=== PATIENT | female | born 1965 | race Caucasian/White ===

== ENCOUNTER 2020-10-20 10:56 | Inpatient (IN) | payer OTHER ==
[~2020-10-20] VITALS: Ht 170.2 cm; Wt 77.1 kg
[~2020-10-20 10:56] MED LIST: ADMELOG100 UNIT/1 SC; HYDROCHLOROTHIA25 MG PO; LANTUS100 UNIT/1 SQ; LEVAQUIN750 MG PO; LIPITOR10 MG PO; NEURONTIN400 MG PO; SUBOXONE 8 MG-1 EACH SL
[2020-10-20 12:47] LABS: HEMOGLOBIN 11.5 gm/dl (12.3-15.3); RED BLOOD COUNT 3.5 M/UL (4.00-5.10); WHITE BLOOD COUNT 10.9 K/UL (4.5-11.0)
[2020-10-20] MEDS ORDERED: CHANTIX0.5 MG PO (17:12)
[2020-10-20] MEDS ORDERED: GABAPENTIN300 MG PO (17:13)
[2020-10-20] MEDS ORDERED: ADULT LOW DOSE81 MG PO (17:13)
[2020-10-20] MEDS ORDERED: DOK100 MG PO (17:14)
[2020-10-20] MEDS ORDERED: PEPCID20 MG PO (17:14)
[2020-10-20] MEDS ORDERED: BUSPAR 10MG10 MG PO (17:14)
[2020-10-20] MEDS ORDERED: LOPRESSOR 25 MG25 MG PO (17:15)
[2020-10-20] MEDS ORDERED: IPRAT-ALBUT 0.5-3 ML INH (17:15)
[2020-10-20] MEDS ORDERED: QUETIAPINE FUMA50 MG PO (17:16)
[2020-10-20] MEDS ORDERED: RENAGEL800 MG PO (17:17)
[2020-10-20] MEDS ORDERED: ZANAFLEX4 MG PO (17:17)
[2020-10-20] MEDS ORDERED: FLOMAX 0.4 MG0.4 MG PO (17:18)
[2020-10-20] MEDS ORDERED: DOXYCYCLINE HY100 M2 PO (18:16)
[2020-10-21 02:33] LABS: HEMOGLOBIN 9.5 gm/dl (12.3-15.3); RED BLOOD COUNT 2.93 M/UL (4.00-5.10); WHITE BLOOD COUNT 5.5 K/UL (4.5-11.0)
[2020-10-22 02:41] LABS: ACINETOBACTER BAUMANNII Not Detected (Negative); CANDIDA ALBICANS Not Detected (Negative); CANDIDA KRUSEI Not Detected (Negative); CANDIDA TROPICALIS Not Detected (Negative); ESCHERICHIA COLI Not Detected (Negative); HAEMOPHILUS INFLUENZAE Not Detected (Negative); KLEBSIELLA OXYTOCA Not Detected (Negative); KLEBSIELLA PNEUMONIAE Not Detected (Negative); KPC-CARBAPENEM-RESISTANCE GENE Not Detected (Negative); PROTEUS Not Detected (Negative); PSEUDOMONAS AERUGINOSA Not Detected (Negative); SERRATIA MARCESANS Not Detected (Negative); STAPHYLOCOCCUS Not Detected (Negative); STAPHYLOCOCCUS AUREUS Not Detected (Negative); STREP AGALACTIAE (GROUP B) Not Detected (Negative); STREP PYOGENES (GROUP A) Not Detected (Negative); STREPTOCOCCUS Not Detected (Negative); mecA (METHICILLIN RESIST GENE Not Detected (Negative); vanA/B (VANCOMYCIN RESIST GENE Not Detected (Negative)
[2020-10-22 04:00] LABS: ENTEROCOCCUS DETECTED (Negative)
--- NOTE | 2020-10-22 05:02 | NUR ---
DR RICHMOND NOTIFIED OF POSITIVE BLOOD CULTURES OF GRAM POSITIVE COCCI IN PAIRS WITH ORGANISM OF ENTEROCOCCOLISIS,ELIZABETH ORDERED FOR PHARMACY TO DOSE
[2020-10-23 11:38] LABS: HEMOGLOBIN 10.7 gm/dl (12.3-15.3); RED BLOOD COUNT 3.3 M/UL (4.00-5.10); WHITE BLOOD COUNT 5.7 K/UL (4.5-11.0)
[2020-10-23 11:39] LABS: HEMOGLOBIN 11.2 gm/dl (12.3-15.3); RED BLOOD COUNT 3.45 M/UL (4.00-5.10); WHITE BLOOD COUNT 4.8 K/UL (4.5-11.0)
[2020-10-24 08:08] LABS: HEMOGLOBIN 11.4 gm/dl (12.3-15.3); RED BLOOD COUNT 3.51 M/UL (4.00-5.10); WHITE BLOOD COUNT 5.2 K/UL (4.5-11.0)
[2020-10-24] MEDS ORDERED: GABAPENTIN300 MG PO (10:13)
[2020-10-24] MEDS ORDERED: VANCOCIN IV 11000 MG IV (10:13)
[2020-10-26 02:19] LABS: ACINETOBACTER BAUMANNII Not Detected (Negative); CANDIDA ALBICANS Not Detected (Negative); CANDIDA KRUSEI Not Detected (Negative); CANDIDA TROPICALIS Not Detected (Negative); ENTEROCOCCUS Not Detected (Negative); ESCHERICHIA COLI Not Detected (Negative); HAEMOPHILUS INFLUENZAE Not Detected (Negative); KLEBSIELLA OXYTOCA Not Detected (Negative); KLEBSIELLA PNEUMONIAE Not Detected (Negative); KPC-CARBAPENEM-RESISTANCE GENE Not Detected (Negative); PROTEUS Not Detected (Negative); PSEUDOMONAS AERUGINOSA Not Detected (Negative); SERRATIA MARCESANS Not Detected (Negative); STAPHYLOCOCCUS Not Detected (Negative); STAPHYLOCOCCUS AUREUS Not Detected (Negative); STREP AGALACTIAE (GROUP B) Not Detected (Negative); STREP PYOGENES (GROUP A) Not Detected (Negative); STREPTOCOCCUS Not Detected (Negative); mecA (METHICILLIN RESIST GENE Not Detected (Negative); vanA/B (VANCOMYCIN RESIST GENE Not Detected (Negative)
== END 2020-10-24 12:19 | disposition home or self-care (01) | DRG 896 ==
LOC: ER1 10:56 → CDU 16:15 → M/S 16:15
PROVIDERS: Physician Assistant Medical; Student in an Organized Health Care Education/Training Program; ADMIT Internal Medicine
PROC: B24BZZ4 Ultrasonography of Heart with Aorta, Transesophageal (ICD-10-PCS; principal; 2020-10-21)
DX: F15.188 Other stimulant abuse with other stimulant-induced disorder (principal); G92 Toxic encephalopathy; N18.6 End stage renal disease; I82.210 Acute embolism and thrombosis of superior vena cava; I12.0 Hypertensive chronic kidney disease with stage 5 chronic kidney disease or end stage renal disease; E87.4 Mixed disorder of acid-base balance; N30.00 Acute cystitis without hematuria; Z20.822 Contact with and (suspected) exposure to COVID-19; E11.22 Type 2 diabetes mellitus with diabetic chronic kidney disease; E78.5 Hyperlipidemia, unspecified; I51.3 Intracardiac thrombosis, not elsewhere classified; E11.40 Type 2 diabetes mellitus with diabetic neuropathy, unspecified; L89.151 Pressure ulcer of sacral region, stage 1; D69.6 Thrombocytopenia, unspecified; B19.20 Unspecified viral hepatitis C without hepatic coma; F19.10 Other psychoactive substance abuse, uncomplicated; B95.2 Enterococcus as the cause of diseases classified elsewhere; F17.200 Nicotine dependence, unspecified, uncomplicated; Z86.14 Personal history of Methicillin resistant Staphylococcus aureus infection; Z90.49 Acquired absence of other specified parts of digestive tract; Z84.1 Family history of disorders of kidney and ureter; Z83.3 Family history of diabetes mellitus; Z98.51 Tubal ligation status; Z91.15 Patient's noncompliance with renal dialysis; Z91.81 History of falling
CPT/HCPCS: ECHO; 0240U; 36415; 70450; 71045; 73502; 80048; 80053; 80202; 80307; 81001; 82550; 82553; 82803; 82962; 83605; 83735; 83874; 84100; 84484; 84702; 85025; 85027; 85652; 86140; 87040; 87077; 87086; 87150; 87186; 90937; 93005; 93306; 94664; 94760; 96372; 96374; 96375; 96376; 97116; 97162; 99285; G0378; J0696; J1644; J3370; J7030; J7070; P9047

== ENCOUNTER 2021-01-23 04:17 | Emergency (ER) | payer OTHER ==
[~2021-01-23 04:17] MED LIST changes: +ADULT LOW DOSE81 MG PO; +BUSPAR 10MG10 MG PO; +CHANTIX0.5 MG PO; +DOK100 MG PO; +DOXYCYCLINE HY100 M2 PO; +FLOMAX 0.4 MG0.4 MG PO; +GABAPENTIN300 MG PO; +IPRAT-ALBUT 0.5-3 ML INH; +LOPRESSOR 25 MG25 MG PO; +PEPCID20 MG PO; +QUETIAPINE FUMA50 MG PO; +RENAGEL800 MG PO; +VANCOCIN IV 11000 MG IV; +ZANAFLEX4 MG PO
[2021-01-23 07:03] LABS: RED BLOOD COUNT 3.37 M/UL (4.00-5.10); WHITE BLOOD COUNT 5.8 K/UL (4.5-11.0)
[2021-01-23] MEDS ORDERED: OMNICEF 300 MG300 MG PO (10:52)
== END 2021-01-23 12:13 | disposition home or self-care (01) ==
LOC: ER1 04:17
PROVIDERS: Emergency Medicine; Family Medicine
DX: M16.11 Unilateral primary osteoarthritis, right hip (principal); M47.816 Spondylosis without myelopathy or radiculopathy, lumbar region; N39.0 Urinary tract infection, site not specified; I12.0 Hypertensive chronic kidney disease with stage 5 chronic kidney disease or end stage renal disease; N18.6 End stage renal disease; Z99.2 Dependence on renal dialysis; G89.29 Other chronic pain; F17.200 Nicotine dependence, unspecified, uncomplicated
CPT/HCPCS: 72100; 72192; 73502; 73562; 80053; 80307; 81001; 83735; 85025; 85652; 86140; 87086; 99284

== ENCOUNTER → 2021-03-23 | Outpatient (CLI) | payer OTHER ==
[~2021-03-23] VITALS: Ht 170.2 cm; Wt 77.1 kg
[~2021-03-23] MED LIST changes: +OMNICEF 300 MG300 MG PO
== END ==
LOC: OPSV 08:00
DX: K65.8 Other peritonitis (principal)
CPT/HCPCS: G0463; J0692

== ENCOUNTER 2021-08-12 11:35 | Inpatient (IN) | payer OTHER ==
[~2021-08-12] VITALS: Ht 170.2 cm; Wt 73.6 kg
[2021-08-12 15:04] LABS: HEMOGLOBIN 10.4 gm/dl (12.3-15.3); RED BLOOD COUNT 3.4 M/UL (4.00-5.10); WHITE BLOOD COUNT 7.7 K/UL (4.5-11.0)
[2021-08-12 15:31] LABS: BUN/CREATININE RATIO 8 (0-10)
[2021-08-12] MEDS ORDERED: GABAPENTIN600 MG PO (17:40)
[2021-08-12] MEDS ORDERED: ONDANSETRON HCL4 MG PO (17:41)
[2021-08-12] MEDS ORDERED: BUPRENORPHINE-1 EACH SL (17:41)
[2021-08-12] MEDS ORDERED: BUMETANIDE2 MG PO (17:41)
[2021-08-12] MEDS ORDERED: VITAMIN D350 MC3 PO (17:42)
[2021-08-12] MEDS ORDERED: CALCIUM ACETAT667 M1 PO (17:43)
[2021-08-13 08:30] LABS: RED BLOOD COUNT 3.25 M/UL (4.00-5.10)
[2021-08-13 08:31] LABS: WHITE BLOOD COUNT 5.6 K/UL (4.5-11.0)
[2021-08-13 10:27] LABS: MONONUCLEAR CELLS 66.7 (75-100); RBC (AUTOMATED) < 100 (0-100000); WBC (AUTOMATED) 15 (0-500)
[2021-08-13 10:28] LABS: POLYMORPHONUCLEAR % 33.3 (0-25)
[2021-08-14 10:17] LABS: HEMOGLOBIN 9.3 gm/dl (12.3-15.3); RED BLOOD COUNT 2.98 M/UL (4.00-5.10); WHITE BLOOD COUNT 6.6 K/UL (4.5-11.0)
[2021-08-15] MEDS ORDERED: DIFLUCAN 100 M100 MG PO (14:24)
[2021-08-15] MEDS ORDERED: CHRONULAC20 GM/30 M PO (14:24)
[2021-08-15] MEDS ORDERED: STIMULANT LAXA1 EACH PO (14:24)
== END 2021-08-15 18:35 | disposition home or self-care (01) | DRG 919 ==
LOC: ER1 11:35 → CDU 18:17 → M/S 21:15
PROVIDERS: Emergency Medicine; Physician Assistant Medical; ADMIT Internal Medicine Infectious Disease
PROC: 3E1M39Z Irrigation of Peritoneal Cavity using Dialysate, Percutaneous Approach (ICD-10-PCS; principal; 2021-08-12)
DX: T85.71XA Infection and inflammatory reaction due to peritoneal dialysis catheter, initial encounter (principal); K65.8 Other peritonitis; N18.6 End stage renal disease; B37.41 Candidal cystitis and urethritis; F11.20 Opioid dependence, uncomplicated; I12.0 Hypertensive chronic kidney disease with stage 5 chronic kidney disease or end stage renal disease; Z20.822 Contact with and (suspected) exposure to COVID-19; Y84.1 Kidney dialysis as the cause of abnormal reaction of the patient, or of later complication, without mention of misadventure at the time of the procedure; E11.22 Type 2 diabetes mellitus with diabetic chronic kidney disease; M16.11 Unilateral primary osteoarthritis, right hip; B19.20 Unspecified viral hepatitis C without hepatic coma; K59.00 Constipation, unspecified; F17.210 Nicotine dependence, cigarettes, uncomplicated; B95.2 Enterococcus as the cause of diseases classified elsewhere; B96.1 Klebsiella pneumoniae [K. pneumoniae] as the cause of diseases classified elsewhere; E78.5 Hyperlipidemia, unspecified; F19.10 Other psychoactive substance abuse, uncomplicated; Z90.49 Acquired absence of other specified parts of digestive tract; Z98.51 Tubal ligation status; Z83.3 Family history of diabetes mellitus; Z84.1 Family history of disorders of kidney and ureter
CPT/HCPCS: 0240U; 36415; 80048; 80053; 80170; 80202; 81001; 82550; 82553; 83605; 83735; 83874; 83986; 84484; 85025; 85027; 85652; 86140; 87040; 87070; 87205; 87206; 89051; 90947; 99285; J0692; J1580; J3370; J7070

== ENCOUNTER → 2021-12-10 | Outpatient (CLI) | payer OTHER ==
[~2021-12-10] MED LIST changes: +BUMETANIDE2 MG PO; +BUPRENORPHINE-1 EACH SL; +CALCIUM ACETAT667 M1 PO; +CHRONULAC20 GM/30 M PO; +DIFLUCAN 100 M100 MG PO; +GABAPENTIN600 MG PO; +ONDANSETRON HCL4 MG PO; +STIMULANT LAXA1 EACH PO; +VITAMIN D350 MC3 PO
== END ==
LOC: LAB 11:03
DX: E83.59 Other disorders of calcium metabolism (principal); Z20.822 Contact with and (suspected) exposure to COVID-19
CPT/HCPCS: U0003

== ENCOUNTER 2021-12-24 15:33 | Emergency (ER) | payer OTHER, MEDICAID ==
[2021-12-24 16:47] LABS: HEMOGLOBIN 10.4 gm/dl (12.3-15.3); RED BLOOD COUNT 3.22 M/UL (4.00-5.10)
[2021-12-24] MEDS ORDERED: HYDROCODON-ACE1 EAC4 PO (18:51)
[2021-12-24] MEDS ORDERED: DURICEF PO (18:57)
== END 2021-12-24 19:33 | disposition home or self-care (01) ==
LOC: ER1 15:33
PROVIDERS: Physician Assistant
DX: T87.42 Infection of amputation stump, left upper extremity (principal); L03.012 Cellulitis of left finger; N19 Unspecified kidney failure; Z99.2 Dependence on renal dialysis
CPT/HCPCS: 73140; 80048; 85025; 85652; 86140; 96372; 99283; J2270; J2405